=== PATIENT | female | born 1960 | race Caucasian/White ===

== ENCOUNTER 2018-06-04 07:59 | Day surgery (SDC) | payer BC ==
[~2018-06-04] VITALS: Ht 177.8 cm; Wt 127.5 kg
[~2018-06-04 07:59] MED LIST: SERT100
== END 2018-06-04 09:57 | disposition home or self-care (01) ==
LOC: ORSCSDS 07:59
PROVIDERS: Student in an Organized Health Care Education/Training Program
PROC: 0DBN8ZX Excision of Sigmoid Colon, Via Natural or Artificial Opening Endoscopic, Diagnostic (ICD-10-PCS; principal; 2018-06-04 09:15)
PROC: 0DBK8ZX Excision of Ascending Colon, Via Natural or Artificial Opening Endoscopic, Diagnostic (ICD-10-PCS; principal; 2018-06-04 09:15)
DX: Z12.11 Encounter for screening for malignant neoplasm of colon (principal); D12.2 Benign neoplasm of ascending colon; K63.5 Polyp of colon; K62.89 Other specified diseases of anus and rectum; K57.30 Diverticulosis of large intestine without perforation or abscess without bleeding; E78.5 Hyperlipidemia, unspecified; F32.9 Major depressive disorder, single episode, unspecified; E66.01 Morbid (severe) obesity due to excess calories; Z68.41 Body mass index [BMI] 40.0-44.9, adult
CPT/HCPCS: 88305; J2250; J7120

== ENCOUNTER → 2018-10-04 | Outpatient (CLI) | payer BC | END | disposition home or self-care (01) | LOC: LAB SHORT 12:20 → LAB 12:20 | DX: R30.0 Dysuria (principal) | CPT/HCPCS: 87086 ==

== ENCOUNTER → 2023-07-19 | Outpatient (CLI) | payer OTHER ==
[2023-07-20 10:35] LABS: Bacterial Vaginosis PCR Negative (NEGATIVE); Candida Group, PCR NOT DETECTED (NOT DETECT); Candida glabrata-krusei, PCR NOT DETECTED (NOT DETECT)
[2023-07-28 23:44] LABS: HPV GENOTYPE 16 Not Detected; HPV GENOTYPE 18 Not Detected; HPV HIGH RISK Detected; HPV SOURCE Cervical
== END ==
LOC: LAB SHORT 15:58 → LAB 15:58
PROVIDERS: Advanced Practice Midwife
DX: Z01.419 Encounter for gynecological examination (general) (routine) without abnormal findings (principal); N93.9 Abnormal uterine and vaginal bleeding, unspecified
CPT/HCPCS: 87624; G0123

== ENCOUNTER → 2023-09-25 | Outpatient (CLI) | payer OTHER | END | disposition home or self-care (01) | LOC: LAB SHORT 07:42 → LAB 07:42 | DX: N85.01 Benign endometrial hyperplasia (principal); Z98.890 Other specified postprocedural states | CPT/HCPCS: 88305 ==

== ENCOUNTER 2023-11-20 06:06 | Day surgery (SDC) | payer OTHER ==
[~2023-11-20] VITALS: Ht 175.3 cm; Wt 135.6 kg
[2023-11-20] VITALS (13 sets, daily range): BP systolic 107–149; BP diastolic 60–93
[~2023-11-20 06:06] MED LIST changes: +DORZOPSO BOTHEYES; +Vitamin C100 M1 PO; +ZINC15 PO
[2023-11-20] MEDS ORDERED: CHOLESTYRAMI239.4 G1 PO (06:25)
--- NOTE | 2023-11-20 06:48 | NUR ---
Ambulatory in Day Surgery History, Chart, Medications and Allergies reviewed before start of procedure. Pre-Op teaching done. Pt verbalizes understanding.
[2023-11-20] MEDS ORDERED: Lactated Ringer's 1,000 ML IV SCH ×2 (06:50→10:15)
[2023-11-20] MEDS ORDERED: CeFAZolin Sodium 3,000 MG in NS 100 ML IV SCH (06:50)
[2023-11-20] MEDS ORDERED: Bupivacaine 0.5% HCl 5 MG/ML 30MLVIAL ONE ×2 (07:15→09:13)
[2023-11-20] MEDS ORDERED: Scopolamine Hydrobromide Patch TD SCH (07:20)
[2023-11-20] MEDS ORDERED: propofoL 20 ML IV ONE (07:20)
[2023-11-20] MEDS ORDERED: Midazolam HCl 1MG / ML 2ML Vial ONE (07:20)
[2023-11-20] MEDS ORDERED: FentaNYL Citrate 50 MCG/ML 2 ML Injection ONE (07:20)
[2023-11-20] MEDS ORDERED: Rocuronium Bromide 10 MG/ML 5ML Injection IV ONE ×2 (07:42→09:13)
[2023-11-20] MEDS ORDERED: Ondansetron HCl 2 MG / ML 2ML Vial ONE (07:42)
[2023-11-20] MEDS ORDERED: Dexamethasone Sod Phos 10 MG/ML 1ML VIAL ONE (07:42)
[2023-11-20] MEDS ORDERED: Labetalol HCL 5 MG/ML 4ML Injection (Single Dose) ONE (09:13)
[2023-11-20] MEDS ORDERED: Sugammadex Sodium 200 MG/2ML SDV (100 MG/ML) ONE ×2 (09:29→09:49)
[2023-11-20] MEDS ORDERED: Ketorolac Tromethamine 30mg Vial ONE (09:29)
[2023-11-20] MEDS ORDERED: OxyCODONE HCL 5 MG TAB PO PRN ×2 (10:10)
[2023-11-20] MEDS ORDERED: Ondansetron HCl 2 MG / ML 2ML Vial IV PRN (10:10)
[2023-11-20] MEDS ORDERED: Naloxone HCl 0.4MG / ML 1ML Vial IV PRN (10:10)
[2023-11-20] MEDS ORDERED: Simethicone 80 MG Chew PO PRN (10:10)
[2023-11-20] MEDS ORDERED: Metoclopramide HCl 5MG / ML 2ML Vial IV PRN (10:10)
[2023-11-20] MEDS ORDERED: HYDROmorphone HCl/Pf 1MG SYR IV PRN (10:15)
[2023-11-20] MEDS ORDERED: DiphenhydrAMINE HCL 25 MG Cap PO PRN (10:15)
--- NOTE | 2023-11-20 10:55 | NUR ---
ARRIVAL TO SURGICAL UNIT VIA [facility] TO HOSPITAL BED. ALERT, BUT QUIET. ASSESSMENT CHARTED. DENIES N/V. SNACKS & DRINKS GIVEN. TO SIDE.
[2023-11-20] MEDS ORDERED: Ketorolac Tromethamine 30mg Vial IV SCH (12:00)
[2023-11-20] MEDS ORDERED: Acetaminophen 500 MG Tab PO SCH (12:00)
[2023-11-20] MEDS ORDERED: ACET500 PO (14:20)
[2023-11-20] MEDS ORDERED: IBUP800 PO (14:21)
[2023-11-20] MEDS ORDERED: ONDA4ODT MM (14:21)
[2023-11-20] MEDS ORDERED: OXYC5 PO (14:21)
--- NOTE | 2023-11-20 14:45 | NUR ---
DISCHARGE TAKING IN SNACKS & SIPS OF WATER WELL. DENIES N/V. PAIN WELL CONTROLLED. NO VAG BLEEDING. SURG SITES WNL. VOIDING EASILY. ESCORTED OUT VIA WC.
[2023-11-20] MEDS ORDERED: Ibuprofen 400 MG Tab PO SCH (16:00)
[2023-11-21] MEDS ORDERED: Polyethylene Glycol 3350 17 gm PO SCH (09:00)
[2023-11-21] MEDS ORDERED: Enoxaparin 40 MG/0.4 ML SYR SC SCH (09:00)
== END 2023-11-20 14:45 | disposition home or self-care (01) ==
LOC: ORSCMMR 06:06 → ORD 07:30 → ORSCMMR 07:30 → ORD 10:30 → SURS 10:38 → ORSCMMR 14:45
PROVIDERS: Obstetrics & Gynecology
PROC: 0UT2FZZ Resection of Bilateral Ovaries, Via Natural or Artificial Opening With Percutaneous Endoscopic Assistance (ICD-10-PCS; principal; 2023-11-20 07:30)
PROC: 0UT9FZZ Resection of Uterus, Via Natural or Artificial Opening With Percutaneous Endoscopic Assistance (ICD-10-PCS; principal; 2023-11-20 07:30)
PROC: 0UT7FZZ Resection of Bilateral Fallopian Tubes, Via Natural or Artificial Opening With Percutaneous Endoscopic Assistance (ICD-10-PCS; principal; 2023-11-20 07:30)
DX: N95.0 Postmenopausal bleeding (principal); N80.03 Adenomyosis of the uterus; N83.292 Other ovarian cyst, left side; N83.291 Other ovarian cyst, right side; R93.89 Abnormal findings on diagnostic imaging of other specified body structures; N81.6 Rectocele; K66.0 Peritoneal adhesions (postprocedural) (postinfection); E66.01 Morbid (severe) obesity due to excess calories; Z68.41 Body mass index [BMI] 40.0-44.9, adult
CPT/HCPCS: 86850; 86900; 86901; 88307; A9270; J0690; J1100; J1885; J2250; J2405; J2704; J3010; J7120

== ENCOUNTER → 2024-04-30 | Outpatient (CLI) | payer OTHER ==
[~2024-04-30] MED LIST changes: +ACET500 PO; +CHOLESTYRAMI239.4 G1 PO; +DULCOLAX STOOL100 M3 PO; +IBUP800 PO; +ONDA4ODT MM; +OXYC5 PO; +TRAM50 PO
== END | disposition home or self-care (01) ==
LOC: LAB SHORT 18:15 → LAB 18:15
DX: N39.0 Urinary tract infection, site not specified (principal)
CPT/HCPCS: 87077; 87086; 87186

== ENCOUNTER 2024-08-28 12:58 | Day surgery (SDC) | payer OTHER ==
[~2024-08-28] VITALS: Ht 177.8 cm; Wt 133.3 kg
[~2024-08-28 12:58] MED LIST changes: +Balanced Salt Epinephrine Irrigation Solution 500 mL IR SCH; +Lidocaine HCl/Pf 1% 5 ML VIAL XX SCH; +Moxifloxacin HCL 0.5 MG/0.1 ML 0.4MLSYR RIGHTEYE SCH; +NS 500 ML IV ONE; +PHENYLEPHRINE\\TROPICAMIDE\\TETRACAINE OPHTHALMIC DILATING SOLN RIGHTEYE PRN; +Povidone-Iodine 450 DROP/30 ML Solution ONE; +Povidone-Iodine 450 DROP/30 ML Solution RIGHTEYE SCH; +Tetracaine HCl/Pf 0.5% Opth Soln 4 ml ONE
[2024-08-28] MEDS ORDERED: NS 1,000 ML IV ONE (13:55)
[2024-08-28] MEDS ORDERED: Midazolam HCl 1MG / ML 2ML Vial ONE (13:57)
--- NOTE | 2024-08-28 14:00 | NUR ---
08/28/24 BENTLEY PEREIRA DISCHARGE EDUCATION INITIATED, ALL QUESTIONS ANSWERED. GURNEY RAILS UP AND GURNEY IN LOW POSITION, CALL LIGHT IN PT HAND.
[2024-08-28] MEDS ORDERED: Tetracaine HCl 0.5% Opth Soln 15 ml RIGHTEYE ONE (14:06)
[2024-08-28 14:35] VITALS: BP 135/70
== END 2024-08-28 14:43 | disposition home or self-care (01) ==
LOC: ORSCSDS 12:58
PROVIDERS: Student in an Organized Health Care Education/Training Program
PROC: 08RJ3JZ Replacement of Right Lens with Synthetic Substitute, Percutaneous Approach (ICD-10-PCS; 2024-08-28)
PROC: 08923ZZ Drainage of Right Anterior Chamber, Percutaneous Approach (ICD-10-PCS; principal; 2024-08-28 14:30)
DX: H25.813 Combined forms of age-related cataract, bilateral (principal); E66.9 Obesity, unspecified; Z68.41 Body mass index [BMI] 40.0-44.9, adult; H40.1111 Primary open-angle glaucoma, right eye, mild stage; E78.5 Hyperlipidemia, unspecified
CPT/HCPCS: J2250; J7040; V2632

== ENCOUNTER 2024-09-03 12:52 | Day surgery (SDC) | payer OTHER ==
[~2024-09-03] VITALS: Ht 177.8 cm; Wt 132.7 kg
[~2024-09-03 12:52] MED LIST changes: +Diazepam 5 MG Tab PO PRN; +Diazepam 5 MG Tab PO SCH; +Lidocaine HCl/Pf 1% 5 ML VIAL ONE; +Moxifloxacin HCL 0.5 MG/0.1 ML 0.4MLSYR LEFTEYE SCH; -Moxifloxacin HCL 0.5 MG/0.1 ML 0.4MLSYR RIGHTEYE SCH; -NS 500 ML IV ONE; +Ondansetron 4 MG SoluTab MM PRN; +PHENYLEPHRINE\\TROPICAMIDE\\TETRACAINE OPHTHALMIC DILATING SOLN LEFTEYE PRN; -PHENYLEPHRINE\\TROPICAMIDE\\TETRACAINE OPHTHALMIC DILATING SOLN RIGHTEYE PRN; +Povidone-Iodine 450 DROP/30 ML Solution LEFTEYE SCH; -Povidone-Iodine 450 DROP/30 ML Solution RIGHTEYE SCH
[2024-09-03] MEDS ORDERED: Diazepam 5 MG Tab ONE (13:17)
--- NOTE | 2024-09-03 13:41 | NUR ---
09/03/24 1341 Gustavo Aranda TETRACAINE ADMINISTERED AT 1330, PLEDGET PLACED AT 1332. VALIUM 10MG ADMINISTERED AT 1328.
--- NOTE | 2024-09-03 14:47 | NUR ---
09/03/24 1447 Bel Ramirez BP-139/[id number]
[2024-09-03 15:09] VITALS: BP 138/73
--- NOTE | 2024-09-03 15:09 | NUR ---
09/03/[address] IN SPEAKING WITH PT.
== END 2024-09-03 15:22 | disposition home or self-care (01) ==
LOC: ORSCSDS 12:52
PROVIDERS: Student in an Organized Health Care Education/Training Program
PROC: 08RK3JZ Replacement of Left Lens with Synthetic Substitute, Percutaneous Approach (ICD-10-PCS; 2024-09-03)
PROC: 08933ZZ Drainage of Left Anterior Chamber, Percutaneous Approach (ICD-10-PCS; principal; 2024-09-03 14:30)
DX: H25.812 Combined forms of age-related cataract, left eye (principal); H40.1121 Primary open-angle glaucoma, left eye, mild stage; H40.1110 Primary open-angle glaucoma, right eye, stage unspecified; E78.5 Hyperlipidemia, unspecified; F32.A Depression, unspecified; Z79.899 Other long term (current) drug therapy
CPT/HCPCS: A9270; J2003; V2632

== ENCOUNTER 2024-12-23 09:46 | Emergency (ER) | payer OTHER ==
[~2024-12-23] VITALS: Ht 177.8 cm; Wt 133.8 kg
[~2024-12-23 09:46] MED LIST changes: -Balanced Salt Epinephrine Irrigation Solution 500 mL IR SCH; -Diazepam 5 MG Tab PO PRN; -Diazepam 5 MG Tab PO SCH; -Lidocaine HCl/Pf 1% 5 ML VIAL ONE; -Lidocaine HCl/Pf 1% 5 ML VIAL XX SCH; -Moxifloxacin HCL 0.5 MG/0.1 ML 0.4MLSYR LEFTEYE SCH; -Ondansetron 4 MG SoluTab MM PRN; -PHENYLEPHRINE\\TROPICAMIDE\\TETRACAINE OPHTHALMIC DILATING SOLN LEFTEYE PRN; -Povidone-Iodine 450 DROP/30 ML Solution LEFTEYE SCH; -Povidone-Iodine 450 DROP/30 ML Solution ONE; -Tetracaine HCl/Pf 0.5% Opth Soln 4 ml ONE
[2024-12-23 11:20] LABS: BASOPHILS ABSOLUTE AUTO 0.06 K/mm3 (0.00-0.23); BASOPHILS PERCENT AUTO 1 % (0-2); EOSINOPHILS ABSOLUTE AUTO 0.14 K/mm3 (0.00-0.68); EOSINOPHILS PERCENT AUTO 2 % (0-6); Hematocrit 42.3 % (33.0-51.0); Hemoglobin 14.1 g/dL (11.5-16.0); IMMATURE GRAN ABSOLUTE AUTO 0.01 K/mm3 (0.00-0.10); IMMATURE GRAN PERCENT AUTO 0 % (0-1); LYMPHOCYTES ABSOLUTE AUTO 2.07 K/mm3 (0.84-5.20); LYMPHOCYTES PERCENT AUTO 25 % (21-46); MONOCYTES ABSOLUTE AUTO 0.56 K/mm3 (0.16-1.47); MONOCYTES PERCENT AUTO 7 % (4-13); Mean Corpuscular HGB Conc 33.3 g/dL (31.5-36.5); Mean Corpuscular Volume 93 fL (80-100); NEUTROPHILS ABSOLUTE AUTO 5.42 K/mm3 (1.96-9.15); NEUTROPHILS PERCENT AUTO 66 % (41-73); NRBC ABSOLUTE 0.00 K/mm3 (0.00-0.02); NRBC Auto 0.0 /100 WBC (0.0-0.2); Platelet Count 205 K/mm3 (150-400); RDW Coefficient Variation 12.9 % (11.7-14.2); RDW Standard Deviation 44.1 fL (35.1-46.3)
[2024-12-23 11:50] LABS: Alanine Aminotransfer (ALT/SGP 31.0 U/L (12-78); Albumin, Blood 3.1 g/dL (3.4-5.0); Albumin/Globulin Ratio 0.7 (0.8-1.8); Anion Gap 5.0 mmol/L (3-11); Aspartate Aminotrans (AST/SGOT 18.0 U/L (12-37); Bilirubin, Total 0.3 mg/dL (0.1-1.0); Blood Urea Nitrogen 15.0 mg/dL (8-24); CO2, Blood 28.0 mmol/L (21-32); Calcium, Blood 8.1 mg/dL (8.5-10.1); Chloride, Blood 110.0 mmol/L (98-108); Creatinine, Blood 0.68 mg/dL (0.40-1.00); Globulin, Blood 4.2 g/dL (2.2-4.0); Glucose, Blood 117.0 mg/dL (70-99); Potassium, Blood 4.2 mmol/L (3.5-5.5); Sodium, Blood 139.0 mmol/L (136-145); Total Protein, Blood 7.3 g/dL (6.4-8.2)
[2024-12-23] MEDS ORDERED: Ultram50 MG PO (14:01)
[2024-12-23] MEDS ORDERED: OMEP20ER PO (14:01)
[2024-12-23 14:15] VITALS: BP 158/95
== END 2024-12-23 14:15 | disposition home or self-care (01) ==
LOC: ER 09:46
PROVIDERS: Physician Assistant
DX: K92.1 Melena (principal); Z88.8 Allergy status to other drugs, medicaments and biological substances
CPT/HCPCS: 80053; 83690; 85025; 99283